=== PATIENT | male | born 1955 | race Caucasian/White ===

== ENCOUNTER 2016-06-20 09:27 | Inpatient (IN) | payer BC ==
[~2016-06-20] VITALS: Ht 188 cm; Wt 117.5 kg
[2016-06-20] MEDS ORDERED: DOXYCYCLINE HY100 MG PO (09:34)
[2016-06-20] MEDS ORDERED: FORT1000TA PO (09:53)
[2016-06-20] MEDS ORDERED: LIPITOR 40MG TA40 MG PO (09:53)
[2016-06-20] MEDS ORDERED: JANUVIA 100MG100 MG PO (09:54)
[2016-06-20] MEDS ORDERED: HYGROTON 2525 MG/TAB (09:54)
[2016-06-20] MEDS ORDERED: COMPLETE SENIOR1 TA1 PO (09:54)
[2016-06-20] MEDS ORDERED: PRINIVIL20 MG PO (09:54)
[2016-06-20] MEDS ORDERED: CLARITIN 1010 MG/TAB PO (09:55)
[2016-06-20] MEDS ORDERED: ASPIRIN 81M81 MG/TA2 PO (09:55)
[2016-06-20] MEDS ORDERED: VITAMINC1000TA (09:55)
[2016-06-20] MEDS ORDERED: LANTUS SOLOS100 U/ML SQ (09:56)
[2016-06-20 10:13] LABS: BASO % 0.2 % (0.0-2.0); EOS # 0.1 (0.0-0.7); EOS % 0.5 % (0-4.0); GRAN # 9.8 (1.4-6.5); GRAN % 75.2 % (42.2-75.2); HEMATOCRIT 44.1 % (42.0-52.0); HEMOGLOBIN 15.1 g/dl (13.5-18.0); LYMPH # 1.8 (1.2-3.4); LYMPH % 13.8 % (20.0-51.0); MEAN CELL VOLUME 89 fl (80.0-100.0); MEAN CORPUSCULAR HEMOGLOBIN 30 pg (27.0-31.0); MEAN CORPUSCULAR HGB CONC 34 g/dl (33.0-37.0); MONO # 1.3 (0.1-0.6); MONO % 10.1 % (1.7-9.3); PLATELET COUNT 208 K/mm3 (130-400); RED BLOOD COUNT 4.98 M/mm3 (4.20-5.60); REDCELL DISTRIBUTION WIDTH-CV 13.6 % (11.5-14.5)
[2016-06-20 10:21] LABS: ADJUSTED CALCIUM 10.5 mg/dL (8.4-10.2); ALBUMIN 4.4 gm/dL (3.5-5.0); BILIRUBIN,TOTAL 1.7 mg/dL (0.0-1.0); CALCIUM 10.8 mg/dL (8.4-10.2); CREATININE, serum 0.75 mg/dL (0.66-1.25); POTASSIUM 4.4 mmol/L (3.4-5.0); TOTAL PROTEIN 8.8 gm/dL (6.4-8.2)
[2016-06-20 14:47] VITALS: BP 129/74; PULSE 69; TEMP 98
[2016-06-20 21:04] VITALS: BP 121/70; PULSE 75; TEMP 98.4
[2016-06-21 01:12] VITALS: BP 116/78; PULSE 64; TEMP 97.1
[2016-06-21 04:37] VITALS: BP 125/68; PULSE 58; TEMP 98.5
[2016-06-21 09:58] LABS: BASO % 0.5 % (0.0-2.0); EOS # 0.1 (0.0-0.7); EOS % 1.4 % (0-4.0); GRAN # 4.7 (1.4-6.5); GRAN % 72.2 % (42.2-75.2); HEMATOCRIT 40.6 % (42.0-52.0); HEMOGLOBIN 13.4 g/dl (13.5-18.0); LYMPH # 1.1 (1.2-3.4); LYMPH % 16.4 % (20.0-51.0); MEAN CELL VOLUME 92 fl (80.0-100.0); MEAN CORPUSCULAR HEMOGLOBIN 30 pg (27.0-31.0); MEAN CORPUSCULAR HGB CONC 33 g/dl (33.0-37.0); MEAN PLATELET VOLUME 11.6 fl (7.4-10.4); MONO # 0.6 (0.1-0.6); PLATELET COUNT 174 K/mm3 (130-400); RED BLOOD COUNT 4.42 M/mm3 (4.20-5.60); REDCELL DISTRIBUTION WIDTH-CV 13.7 % (11.5-14.5); WHITE BLOOD COUNT 6.5 K/mm3 (4.8-10.8)
[2016-06-21 10:02] LABS: ADJUSTED CALCIUM 10.2 mg/dL (8.4-10.2); ALBUMIN 3.7 gm/dL (3.5-5.0); BILIRUBIN,TOTAL 1.2 mg/dL (0.0-1.0); CREATININE, serum 0.74 mg/dL (0.66-1.25); POTASSIUM 4.1 mmol/L (3.4-5.0); TOTAL PROTEIN 7.5 gm/dL (6.4-8.2)
[2016-06-21 11:57] VITALS: BP 127/73; PULSE 67; TEMP 97.7
[2016-06-21 17:09] VITALS: BP 125/73; PULSE 64; TEMP 98.8
[2016-06-21 20:38] VITALS: BP 128/72; PULSE 67; TEMP 98
[2016-06-22] VITALS (10 sets, daily range): BP systolic 111–143; BP diastolic 62–76; PULSE 56–83; TEMP 97.9–98.5
[2016-06-23 04:09] VITALS: BP 128/67; PULSE 59; TEMP 98.2
[2016-06-23 07:23] LABS: HEMATOCRIT 40.5 % (42.0-52.0); HEMOGLOBIN 13.5 g/dl (13.5-18.0); MEAN CELL VOLUME 91 fl (80.0-100.0); MEAN CORPUSCULAR HEMOGLOBIN 31 pg (27.0-31.0); MEAN CORPUSCULAR HGB CONC 33 g/dl (33.0-37.0); MEAN PLATELET VOLUME 11.3 fl (7.4-10.4); PLATELET COUNT 180 K/mm3 (130-400); RED BLOOD COUNT 4.43 M/mm3 (4.20-5.60); REDCELL DISTRIBUTION WIDTH-CV 13.5 % (11.5-14.5); WHITE BLOOD COUNT 8.1 K/mm3 (4.8-10.8)
[2016-06-23 07:36] LABS: ADJUSTED CALCIUM 10.9 mg/dL (8.4-10.2); ALBUMIN 3.6 gm/dL (3.5-5.0); BILIRUBIN,TOTAL 0.7 mg/dL (0.0-1.0); CALCIUM 10.6 mg/dL (8.4-10.2); CREATININE, serum 0.72 mg/dL (0.66-1.25); POTASSIUM 4.6 mmol/L (3.4-5.0); TOTAL PROTEIN 7.5 gm/dL (6.4-8.2)
[2016-06-23 07:47] VITALS: BP 146/76; PULSE 65; TEMP 97.4
[2016-06-23] MEDS ORDERED: DOXYCYCLINE HY100 MG PO (09:41)
[2016-06-23] MEDS ORDERED: NORCO 325 MG-51 TAB PO (09:42)
[2016-06-23] MEDS ORDERED: CEPHALEXIN500 M1 PO (09:43)
== END 2016-06-23 11:35 | disposition home or self-care (01) | DRG 617 ==
LOC: COL.ER 09:27 → MEDICAL 11:54
PROVIDERS: Emergency Medicine; Internal Medicine; Orthopaedic Surgery
PROC: 0Y6T0Z1 Detachment at Right 3rd Toe, High, Open Approach (ICD-10-PCS; principal; 2016-06-22 08:00)
DX: E11.621 Type 2 diabetes mellitus with foot ulcer (principal); E87.1 Hypo-osmolality and hyponatremia; D62 Acute posthemorrhagic anemia; E11.628 Type 2 diabetes mellitus with other skin complications; L97.511 Non-pressure chronic ulcer of other part of right foot limited to breakdown of skin; L03.031 Cellulitis of right toe; E11.610 Type 2 diabetes mellitus with diabetic neuropathic arthropathy; E11.40 Type 2 diabetes mellitus with diabetic neuropathy, unspecified; I10 Essential (primary) hypertension; E11.65 Type 2 diabetes mellitus with hyperglycemia; E83.52 Hypercalcemia; Z79.4 Long term (current) use of insulin
CPT/HCPCS: 99223-AI; 99232-AI; 99239; A9284; J0690; J1650; J1815; J2250; J2543; J2704; J3010; J3370; J7030; J7040; J7050